=== PATIENT | male | born 1990 | race Hispanic/Latino ===

== ENCOUNTER 2024-01-10 10:18 | Emergency (ER) | payer SELFPAY ==
[~2024-01-10] VITALS: Ht 160 cm; Wt 196.4 kg
[2024-01-10 11:29] LABS: BASOPHILS # (AUTO) 0.07 K/uL (0.00-0.20); BASOPHILS % (AUTO) 0.6 % (0.0-5.0); EOSINOPHILS # (AUTO) 0.24 K/uL (0.00-0.70); EOSINOPHILS % (AUTO) 2.1 % (0.0-8.0); HEMATOCRIT 45.9 % (42-54); IMMATURE GRANULOCYTE ABSOLUTE 0.06 K/uL (0-1); LYMPHOCYTES # (AUTO) 2.2 K/uL (1.0-4.8); LYMPHOCYTES % (AUTO) 19.5 % (21.0-51.0); MEAN CORPUSCULAR HGB CONC 30.9 g/dL (32.0-36.0); MEAN CORPUSCULAR VOLUME 87.3 fL (79-99); MONOCYTES # (AUTO) 0.9 K/uL (0.1-1.0); MONOCYTES % (AUTO) 8.3 % (3.0-13.0); NEUTROPHILS # (AUTO) 7.8 K/uL (1.8-7.7); PLATELET COUNT (AUTO) 283 K/uL (130-400); RED BLOOD CELL COUNT(AUTO) 5.26 MIL/uL (4.50-6.20); RED CELL DISTRIBUTION WIDTH 14.9 % (11.0-15.5); WHITE BLOOD COUNT (AUTO) 11.3 K/uL (4.8-10.8)
[2024-01-10 11:34] LABS: CREATININE 0.9 mg/dL (0.5-1.3)
[2024-01-10 11:34] LABS: APPEARANCE,URINE CLEAR (CLEAR); BILIRUBIN,URINE NEGATIVE (NEGATIVE); COLOR,URINE COLORLESS (YELLOW); GLUCOSE, URINE (UA) NEGATIVE (NEGATIVE); KETONES,URINE NEGATIVE (NEGATIVE); LEUKOCYTE ESTERASE ,URINE NEGATIVE Leu/uL (NEGATIVE); NITRATE,URINE NEGATIVE (NEGATIVE); OCCULT BLOOD,URINE NEGATIVE (NEGATIVE); PH,URINE 5.5 (5.0-8.0); PROTEIN,URINE NEGATIVE (NEGATIVE); UROBILINOGEN,URINE 0.2 mg/dL (0.2-1.0)
--- NOTE | 2024-01-10 11:45 | ERN ---
General Chief Complaint: Anxiety/Panic Attack Stated Complaint: LOW O2 LEVELS, IRREGULAR HEARTBEAT,FATIGUE Time Seen by MD: 10:51 Time Seen by Midlevel: 10:51 Source: patient History of Present Illness Initial Comments Patient is a morbidly obese 33-year-old male presenting to the ER with multiple complaints. Patient states that earlier today he had an episode of shortness of breath and hyperventilation. He reports similar episodes in the past. During this episode he reports checking his O2 saturation and it was 90 % on room air. This made him increasingly anxious and he developed palpitations. He reports taking Xanax that his brother owns. He states his symptoms have now completely resolved. He does report having an extensive history of anxiety and has been previously taking several medication for anxiety but has been off of it now for several weeks. He has been taking the Xanax from his brother but has never had a prescription for Xanax. On arrival he states he feels significantly better and specifically denies any chest pain, shortness for breath, palpitations, or any other symptoms at this time. Allergies: Coded Allergies: No Known Allergies (Unverified Allergy, Unknown, 01/10/24) Past Medical History Past Medical History: Anxiety, Asthma, Hypertension Past Surgical History: Other ROS Dictation CONSTITUTIONAL: Negative except for HPI HEAD/FACE: Negative except for HPI EENT: Negative except for HPI RESPIRATORY: Negative except for HPI GASTROINTESTINAL/ABDOMINAL: Negative except for HPI GENITOURINARY: Negative except for HPI MUSCULOSKELETAL: Negative except for HPI INTEGUMENTARY: Negative except for HPI NEUROLOGICAL/PSYCH: Negative except for HPI HEMATOLOGIC/LYMPHATIC: Negative except for HPI All Systems Negative, Except as noted above. 13 point review of systems assessed and all negative except for above. Physical Exam Physical Exam Dictation Vital Signs reviewed General Appearance: Alert, oriented x 3, no acute distress, well developed, nourished. Head and Face: non-traumatic. Eyes: PERRL, pink conjunctivas, eyelid no trauma, anterior chamber with arcus senilis. Ears: Pinnas intact and no signs of trauma or erythema ear canals clear and no discharge TM no erythema Nose: No discharge, no bleeding. Oropharynx: Mouth normal, tongue pink, pharynx clear,no erythema, tonsils no exudates, no abscesses noted, mucous membrane moist Neck: Supple, non-tender, no thyromegaly, no masses, no JVD, no bruits Breast:Deferred Chest:No tenderness, no crepitus, no paradoxical movement, no retractions Lungs:Clear, well-ventilated, symmetric, no rales, no wheezing, no rhonchi, no stridor, good breath sounds bilaterally Heart: Regular rate, regular rhythm, no murmur, no gallops Vascular: no peripheral edema, Abdomen: Soft, positive bowel sounds, nondistended, no guarding, nontender, no rebound, no masses no hepatomegaly, no splenomegaly, no Gonzalez's sign, no hernias. Rectal: Deferred Genital: Deferred Neurological: Normal speech, motor function intact, sensory function intact Musculoskeletal: Neck nontender, full range of motion, back nontender, full range of motion, Extremities: nontender, full range of motion Skin: Color pink, dry, no turgor, no rash, no lacerations, no abrasions, no contusions. Lymphatic: Deferred Results Laboratory and Microbiology Lab and Micro Result Laboratory Tests Test 01/10/24 11:11 01/10/24 11:20 White Blood Count 11.3 K/uL (4.8-10.8) H Red Blood Count 5.26 MIL/uL (4.50-6.20) Hemoglobin 14.2 g/dL (14.0-18.0) Hematocrit 45.9 % (42-54) Mean Corpuscular Volume 87.3 fL (79-99) Mean Corpuscular Hemoglobin 27.0 pg (27.0-33.0) Mean Corpuscular Hemoglobin Concent 30.9 g/dL (32.0-36.0) L Red Cell Distribution Width 14.9 % (11.0-15.5) Platelet Count 283 K/uL (130-400) Mean Platelet Volume 10.0 fL (7.5-10.5) Immature Granulocyte % (Auto) 0.5 % (0-1) Neutrophils (%) (Auto) 69.0 % (40.0-77.0) Lymphocytes (%) (Auto) 19.5 % (21.0-51.0) L Monocytes (%) (Auto) 8.3 % (3.0-13.0) Eosinophils (%) (Auto) 2.1 % (0.0-8.0) Basophils (%) (Auto) 0.6 % (0.0-5.0) Neutrophils # (Auto) 7.8 K/uL (1.8-7.7) H Lymphocytes # (Auto) 2.2 K/uL (1.0-4.8) Monocytes # (Auto) 0.9 K/uL (0.1-1.0) Eosinophils # (Auto) 0.24 K/uL (0.00-0.70) Basophils # (Auto) 0.07 K/uL (0.00-0.20) Absolute Immature Granulocyte (auto 0.06 K/uL (0-1) Nucleated Red Blood Cells 0.0 % (0.0-0.19) Red Blood Cell Morphology See comments Sodium Level 134 mmol/L (136-145) L Potassium Level 4.0 mmol/L (3.5-5.1) Chloride Level 97 mmol/L (101-111) L Carbon Dioxide Level 34 mmol/L (21-32) H Blood Urea Nitrogen 14 mg/dL (7-18) Creatinine 0.9 mg/dL (0.5-1.3) Glomerular Filtration Rate Calc 114 mL/min (>90) Random Glucose 111 mg/dL (70-105) H Total Calcium 8.7 mg/dL (8.5-10.1) Urine Color COLORLESS (YELLOW) Urine Appearance CLEAR (CLEAR) Urine pH 5.5 (5.0-8.0) Urine Specific [place] 1.007 (1.001-1.031) Urine Protein NEGATIVE mg/dL (NEGATIVE) Urine Glucose (UA) NEGATIVE mg/dL (NEGATIVE) Urine Ketones NEGATIVE mg/dL (NEGATIVE) Urine Occult Blood NEGATIVE (NEGATIVE) Urine Nitrate NEGATIVE (NEGATIVE) Urine Bilirubin NEGATIVE mg/dL (NEGATIVE) Urine Urobilinogen 0.2 mg/dL (0.2-1.0) Urine Leukocyte Esterase NEGATIVE Dianne/uL Labs Reviewed?: Yes MDM MDM: Patient is a morbidly obese 33-year-old male presenting to the ER with multiple complaints. Patient states that earlier today he had an episode of shortness of breath and hyperventilation. He reports similar episodes in the past. During this episode he reports checking his O2 saturation and it was 90 % on room air. This made him increasingly anxious and he developed palpitations. He reports taking Xanax that his brother owns. He states his symptoms have now completely resolved. He does report having an extensive history of anxiety and has been previously taking several medication for anxiety but has been off of it now for several weeks. He has been taking the Xanax from his brother but has never had a prescription for Xanax. On arrival he states he feels significantly better and specifically denies any chest pain, shortness for breath, palpitations, or any other symptoms at this time. On physical examination patient is lying comfortably in bed in no acute distress. His O2 saturation is 97% on room air. He is morbidly obese. Offered to administer something for anxiety but however patient refused stating that he feels a lot better. His physical examination is unremarkable. We obtained basic labs which are also unremarkable. Patient will be discharged home. He was advised to follow up with both his primary care doctor and psychiatrist for outpatient evaluation. Patient agrees with this plan and all questions have been answered. Return precautions discussed Differential diagnosis: Anxiety, panic attack, substance abuse There are no social concerns with this patient. Prescription drug management Prescriptions will include: None Medical management and examination interpretation discussions were had by me with other qualified healthcare professionals as indicated for the patient's care. ED Course Orders Procedure Category Date Status Time Cbc With Differential LAB 01/10/24 Complete 10:59 Basic Metabolic Panel LAB 01/10/24 Complete 10:59 Urinalysis Profile LAB 01/10/24 Complete 11:18 Vital Signs Date Time Temp Pulse Resp B/P (MAP) Pulse Ox O2 Delivery O2 Flow Rate FiO2 01/10/24 12:32 98.1 81 20 137/71 96 Room Air* 0 21 01/10/24 10:45 98.1 83 20 148/72 96 Room Air DX & DISP Disposition: Discharge Departure Impression: Primary Impression: History of anxiety Condition: Stable Additional Instructions: Your blood work today is unremarkable. You will need to follow up with your primary care doctor for possible referral to a specialist so they can manage your anxiety outpatient. If you develop any new or worsening symptoms please report to the ER for further evaluation. Referrals: NELLY VALERA (PCP) Time of Disposition: 11:36 I have reviewed the case, and I agree with, Diagnosis and Plan I performed the substantive portion of the visit. I have reviewed and personally made and approve the management plan that is documented in the note by myself or the AMY. I acknowledge for responsibility for the patient's management plan. ALEXA VELAZCO Jan 10, 2024 11:45 MARTÍN ABAD DO Jan 10, 2024 14:56
[2024-01-10 12:18] LABS: ADD UA MICROSCOPIC NO
[2024-01-10 12:32] VITALS: BP 137/71; PULSE 81; RESP 20; TEMP 98.1; O2SAT 96
== END 2024-01-10 12:44 | disposition home or self-care (01) ==
LOC: EDH 10:18
DX: F41.9 Anxiety disorder, unspecified (principal); E66.01 Morbid (severe) obesity due to excess calories; I10 Essential (primary) hypertension; J45.909 Unspecified asthma, uncomplicated
CPT/HCPCS: 36415; 80048; 81003; 85025; 99283